=== PATIENT | male | born 1960 | race Two or more races ===

== ENCOUNTER 2019-11-23 15:07 | Emergency (ER) | payer BC ==
[~2019-11-23] VITALS: Ht 165.1 cm; Wt 78.5 kg
[2019-11-23 15:12] VITALS: Ht 165.1 cm; Wt 78.5 kg
[2019-11-23 16:02] LABS: CARBON DIOXIDE 29.5 mmol/L (21-32); CHLORIDE SERUM 97 mmol/L (98-107); CREATININE SERUM 1.1 mg/dL (0.7-1.3); GFR1 > 60 mL/min; GLUCOSE SERUM 393 mg/dL (74-106); POTASSIUM SERUM 4.4 mmol/L (3.5-5.1); SODIUM SERUM 133 mmol/L (136-145)
[2019-11-23 16:06] LABS: ALKALINE PHOSPHATASE 125 U/L (46-116); ALT/SGPT 28 U/L (16-63); AST/SGOT 24 U/L (15-37); TOTAL PROTEIN, SERUM 6.6 g/dL (6.4-8.2)
[2019-11-23 16:07] LABS: ALBUMIN 2.9 g/dL (3.4-5.0)
[2019-11-23 17:46] VITALS: BP 168/91
== END 2019-11-23 17:45 | disposition home or self-care (01) ==
LOC: ED 15:07
PROVIDERS: Emergency Medicine
DX: E11.65 Type 2 diabetes mellitus with hyperglycemia (principal); E11.40 Type 2 diabetes mellitus with diabetic neuropathy, unspecified; J32.9 Chronic sinusitis, unspecified; I10 Essential (primary) hypertension
CPT/HCPCS: J7030